=== PATIENT | female | born 1930 | race Caucasian/White ===

== ENCOUNTER 2017-01-18 13:23 | Inpatient (IN) | payer MEDICARE, OTHER ==
[~2017-01-18] VITALS: Ht 167.6 cm; Wt 64.9 kg
[2017-01-18] MEDS ORDERED: PRAM1TAB7 PO (14:30)
[2017-01-18] MEDS ORDERED: AMOX-430 PO (14:30)
[2017-01-18] MEDS ORDERED: FERR-58 PO (14:30)
[2017-01-18] MEDS ORDERED: ATOR10TA PO (14:30)
[2017-01-18] MEDS ORDERED: ASPI-991 PO (14:30)
[2017-01-18] MEDS ORDERED: METO25TA20 PO (14:30)
[2017-01-18 14:34] LABS: BASOPHILS % (AUTO) 0.3 % (0.0-2.0); EOSINOPHILS # (AUTO) 0.2 /CMM (0.0-0.7); EOSINOPHILS % (AUTO) 1.2 % (0.0-6.0); HEMATOCRIT 43 % (33-45); HEMOGLOBIN 14.5 g/dL (11.5-14.8); LYMPHOCYTES # (AUTO) 1.9 /CMM (0.8-4.8); LYMPHOCYTES % (AUTO) 14.8 % (20.0-44.0); MEAN CORPUSCULAR HEMOGLOBIN 32 PG (26.0-33.0); MEAN CORPUSCULAR HGB CONC 34 g/dl (31.0-36.0); MEAN CORPUSCULAR VOLUME 95 fL (82-100); MONOCYTES # (AUTO) 0.8 /CMM (0.1-1.30); MONOCYTES % (AUTO) 6.6 % (2.0-12.0); NEUTROPHILS # (AUTO) 9.8 /CMM (1.8-8.9); NEUTROPHILS % (AUTO) 77.1 % (43.0-81.0); PLATELET COUNT (AUTO) 422 /CMM (150-450); RDW COEFFICIENT OF VARIATION 11.3 (11.5-15.0); RED BLOOD CELL COUNT(AUTO) 4.58 MIL/uL (4.0-5.2); WHITE BLOOD COUNT (AUTO) 12.7 K/uL (4.3-11.0)
[2017-01-18] MEDS ORDERED: IV SET PRIMARY PUMP SET 1 EA INFUS.SET MC ONE ×2 (14:42→19:52)
[2017-01-18] MEDS ORDERED: CEFTRIAXONE 1GM BAG (ER ONLY) 50 ML IV ONE (14:42)
--- NOTE | 2017-01-18 14:45 | NUR ---
CHARGE NURSE CALLED FOR M/S BED
[2017-01-18 14:48] LABS: CARBON DIOXIDE 30 mmol/L (21-32); CHLORIDE 106 mmol/L (98-107); CREATININE 1.1 mg/dL (0.6-1.3); GLUCOSE 125 mg/dL (74-106); SODIUM SERUM 140 mmol/L (136-145); UREA NITROGEN, BLOOD 12 mg/dL (7-18)
[2017-01-18 14:49] LABS: INR 1.07 (0.87-1.13); PROTHROMBIN TIME 11.1 SECS (9.5-12.7)
[2017-01-18 14:51] LABS: TROPONIN I < 0.017 ng/mL (0.00-0.056)
[2017-01-18] MEDS ORDERED: VANCOMYCIN 1 GM in IV D5W 250 ML IV ONE (15:00)
[2017-01-18] MEDS ORDERED: CEFTRIAXONE 1GM BAG (ER ONLY) 1 GM/50 ML PIGGYBACK IV ONE (15:00)
[2017-01-18 15:01] LABS: ALANINE AMINOTRANSFERASE 21 U/L (12-78); ALBUMIN 2.5 g/dL (3.4-5.0); ALKALINE PHOSPHATASE 75 U/L (46-116); ASPARTATE AMINOTRANSFERASE 21 U/L (15-37); BILIRUBIN,DIRECT 0.1 mg/dL (0.0-0.2); BILIRUBIN,TOTAL 0.4 mg/dL (0.2-1.0); TOTAL PROTEIN, SERUM 8.1 g/dL (6.4-8.2)
--- NOTE | 2017-01-18 15:29 | NUR ---
PT ASSIGNED M/S [facility] 206-1
[2017-01-18 15:36] LABS: LACTIC ACID 1.7 mmol/L (0.4-2.0)
--- NOTE | 2017-01-18 15:41 | NUR ---
PAGED DR HANSON
[2017-01-18] MEDS ORDERED: CEFEPIME 1 GM in IV D5W 50 ML IV ONE (16:30)
--- NOTE | 2017-01-18 16:30 | NUR ---
REPORT GIVEN TO SOBEIDA ALFARO FOR JULIEN MS 206-1
[2017-01-18 17:00] VITALS: BP 171/79
--- NOTE | 2017-01-18 17:10 | NUR ---
PT ADMITTED FROM ER IN STABLE CONDITION, NO SOB OR DISTRESS NOTED, NO PAIN OR DISCOMFORT, PT'S SON AT BEDSIDE, PT TRANSFERRED OT BED SAFELY, ORIENTED TO ENVIRONMENT AND CALL LIGHT, WILL MONITOR PT AND START ADMISSION PROCESS.
[2017-01-18] MEDS ORDERED: ONDANSETRON HCL/PF 4 MG/2 ML VIAL IV PRN (18:30)
[2017-01-18] MEDS: METOPROLOL TARTRATE 25 MG TABLET PO SCH (18:30)
[2017-01-18] MEDS ORDERED: LEVOFLOXACIN 500 MG /D5W 100ML 500 MG in PREMIX 1 EA IV SCH (18:30)
[2017-01-18] MEDS: ENOXAPARIN SODIUM 30 MG/0.3 ML DISP.SYRIN SQ SCH (18:34)
[2017-01-18] MEDS ORDERED: FEE PK DOSING 1 MIN EA MC ONE (18:59)
--- NOTE | 2017-01-18 19:31 | NUR ---
PT IN STABLE CONDITION, NO SOB OR DISTRESS NOTED, NO PAIN OR DISCOMFORT, INDORSED TO NEXT SHIFT FOR JULIEN
[2017-01-18] MEDS ORDERED: IV NS 0.9% 250 ML IV ONE (19:52)
[2017-01-18] MEDS ORDERED: SECONDARY IV SET 1 EA INFUS.SET MC ONE (19:52)
[2017-01-18 20:00] VITALS: BP 147/63
[2017-01-18] MEDS ORDERED: VANCOMYCIN 1 GM in IV D5W 250 ML IV SCH (20:00)
[2017-01-18] MEDS ORDERED: LEVOFLOXACIN 500 MG /D5W 100ML 500 MG in PREMIX 1 EA IV ONE (20:00)
--- NOTE | 2017-01-18 20:00 | NUR ---
PATIENT IN BED, ALERT AND ORIENTED X4, CALM, NO RESPIRATORY DISTRESS, ABLE TO VERBALIZE NEEDS, DENIES ANY PAIN AT THIS TIME, RIGHT AC #20 PERIPHERAL LINE IS PATENT AND INFUSING WELL, BILATERAL LOWER EXTREMITIES OFFLOADED. KEPT SAFE AND COMFORTABLE, CALL LIGHT WITHIN REACH.
[2017-01-18] MEDS: ATORVASTATIN 10 MG TABLET PO SCH (21:15)
--- NOTE | 2017-01-18 22:17 | NUR ---
INITIAL WOUND CARE PERFORMED TO RIGHT HEEL, LEFT HEEL REDNESS PROTECTED WITH DRESSING, BOTH LOWER EXTREMITIES OFFLOADED.
[2017-01-19 06:32] LABS: CALCIUM, SERUM 8.5 mg/dL (8.5-10.1); CREATININE 0.9 mg/dL (0.6-1.3); POTASSIUM 3.9 mmol/L (3.5-5.1)
[2017-01-19 06:41] LABS: BASOPHILS % (AUTO) 0.2 % (0.0-2.0); EOSINOPHILS # (AUTO) 0.1 /CMM (0.0-0.7); EOSINOPHILS % (AUTO) 1.1 % (0.0-6.0); HEMATOCRIT 38 % (33-45); HEMOGLOBIN 12.8 g/dL (11.5-14.8); LYMPHOCYTES # (AUTO) 1.9 /CMM (0.8-4.8); MEAN CORPUSCULAR HEMOGLOBIN 32 PG (26.0-33.0); MEAN CORPUSCULAR HGB CONC 33 g/dl (31.0-36.0); MEAN CORPUSCULAR VOLUME 95 fL (82-100); MONOCYTES # (AUTO) 0.8 /CMM (0.1-1.30); MONOCYTES % (AUTO) 7.1 % (2.0-12.0); NEUTROPHILS # (AUTO) 8.5 /CMM (1.8-8.9); NEUTROPHILS % (AUTO) 74.6 % (43.0-81.0); PLATELET COUNT (AUTO) 369 /CMM (150-450); RDW COEFFICIENT OF VARIATION 12.3 (11.5-15.0); RED BLOOD CELL COUNT(AUTO) 4.04 MIL/uL (4.0-5.2); WHITE BLOOD COUNT (AUTO) 11.4 K/uL (4.3-11.0)
--- NOTE | 2017-01-19 06:43 | NUR ---
PATIENT IN BED, ALERT AND AWAKE, NO SOB, NO DISTRESS, DENIES ANY PAIN AT THIS TIME, NO ADVERSE CHANGE OF CONDITION DURING SHIFT, INITIAL WOUND CARE RENDERED, BILATERAL LOWER EXTREMITIES OFFLOADED, NEEDS ATTENDED, CALL LIGHT WITHIN REACH.
[2017-01-19 07:06] LABS: C-REACTIVE PROTEIN 12.7 mg/dL (0.0-0.9)
[2017-01-19 08:00] VITALS: BP 153/78
--- NOTE | 2017-01-19 08:00 | NUR ---
RECEIVED PT IN STABLE CONDITION. PT CURRENTLY RESTING IN BED IN SEMI-SAGASTUME'S. PT IS A/O X4. NO S/S OF DISTRESS NOTED. WILL CONTINUE TO MONITOR THROUGHOUT SHIFT.
[2017-01-19] MEDS: PANTOPRAZOLE 40 MG TABLET.DR PO SCH (08:21)
[2017-01-19] MEDS: ASPIRIN EC 81 MG TABLET.DR PO SCH (08:21)
[2017-01-19] MEDS: FERROUS SULFATE (325 MG) 325 MG/TAB TABLET PO SCH (08:21)
[2017-01-19] MEDS: METOPROLOL TARTRATE 25 MG TABLET PO SCH ×4 (08:22→17:30)
[2017-01-19] MEDS: PRAMIPEXOLE DI-HCL 0.25 MG TABLET PO SCH ×3 (08:22→17:30)
[2017-01-19] MEDS ORDERED: PRAMIPEXOLE DI HCL 1 MG PO SCH (09:00)
[2017-01-19] MEDS ORDERED: SECONDARY IV SET 1 EA INFUS.SET MC ONE (14:48)
[2017-01-19] MEDS: VANCOMYCIN 1 GM in IV D5W 250 ML IV SCH (14:58)
[2017-01-19] MEDS ORDERED: VANCOMYCIN 1 GM in IV D5W 250 ML IV SCH (15:00)
[2017-01-19 16:55] VITALS: BP 141/75
[2017-01-19] MEDS: LACTOBACILLUS RHAMNOSUS GG 1 EACH CAP.SPRINK PO SCH (17:30)
--- NOTE | 2017-01-19 18:55 | NUR ---
MS RN CLOSING NOTES PT IS CURRENTLY A/OX4. PT IS IN STABLE CONDITION. PILLOWS PLACED UNDER LEGS TO OFFLOAD PATIENT'S FEET. NO S/S OF SOB OR DISTRESS NOTED. WILL ENDORSE CARE TO PM SHIFT.
--- NOTE | 2017-01-19 19:30 | NUR ---
PATIENT IN BED, ALERT AND AWAKE, NO SOB, NO DISTRESS, DENIES ANY PAIN AT THIS TIME. BILATERAL LOWER EXTREMITIES OFFLOADED, DRSG CLEAN, DRY AND INTACT. CALL LIGHT WITHIN REACH. WILL CONTINUE TO MONITOR.
[2017-01-19 20:00] VITALS: BP 148/72
[2017-01-19] MEDS: LEVOFLOXACIN 250 MG /D5W 50 ML 250 MG in PREMIX 1 EA IV SCH (21:30)
[2017-01-19] MEDS: ATORVASTATIN 10 MG TABLET PO SCH (21:31)
[2017-01-19] MEDS: ENOXAPARIN SODIUM 30 MG/0.3 ML DISP.SYRIN SQ SCH (21:33)
[2017-01-19 22:00] VITALS: BP 148/72
[2017-01-19] MEDS: ACETAMINOPHEN 325 MG TABLET PO PRN (22:15)
[2017-01-20 06:30] LABS: BASOPHILS % (AUTO) 0.3 % (0.0-2.0); EOSINOPHILS # (AUTO) 0.2 /CMM (0.0-0.7); EOSINOPHILS % (AUTO) 1.8 % (0.0-6.0); HEMATOCRIT 39 % (33-45); HEMOGLOBIN 13.2 g/dL (11.5-14.8); LYMPHOCYTES % (AUTO) 19.1 % (20.0-44.0); MEAN CORPUSCULAR HEMOGLOBIN 32 PG (26.0-33.0); MEAN CORPUSCULAR HGB CONC 34 g/dl (31.0-36.0); MEAN CORPUSCULAR VOLUME 95 fL (82-100); MONOCYTES # (AUTO) 0.7 /CMM (0.1-1.30); MONOCYTES % (AUTO) 6.4 % (2.0-12.0); NEUTROPHILS # (AUTO) 7.7 /CMM (1.8-8.9); NEUTROPHILS % (AUTO) 72.4 % (43.0-81.0); PLATELET COUNT (AUTO) 380 /CMM (150-450); RDW COEFFICIENT OF VARIATION 12.3 (11.5-15.0); RED BLOOD CELL COUNT(AUTO) 4.16 MIL/uL (4.0-5.2); WHITE BLOOD COUNT (AUTO) 10.7 K/uL (4.3-11.0)
[2017-01-20 06:35] LABS: CALCIUM, SERUM 8.2 mg/dL (8.5-10.1); CREATININE 1.1 mg/dL (0.6-1.3); POTASSIUM 4.1 mmol/L (3.5-5.1)
[2017-01-20] MEDS: PANTOPRAZOLE 40 MG TABLET.DR PO SCH (06:43)
--- NOTE | 2017-01-20 06:47 | NUR ---
TEXTED DR. MOTT FOR MRI APPROVAL.
[2017-01-20 08:00] VITALS: BP 150/89
--- NOTE | 2017-01-20 08:00 | NUR ---
MS RN NOTES PATIENT IN BED RESTING NO SOB OR ACUTE DISTRESS NOTED. BED IN LOW LOCKED POSITION. CALL LIGHT WITHIN REACH. IV INTACT PATENT. WILL CONTINUE TO MONITOR.
--- NOTE | 2017-01-20 08:15 | NUR ---
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 PT INCONTINENT AND NOTED TO HAVE SOME EXCORIATION WITH SLIGHT PEELING OF SKIN TO BUTTOCKS, PRESENT ON ADMISSION. PT ON COMFORT GEL MATTRESS. PT ABLE TO ASSIST WITH TURNING AND REPOSITIONING IN BED. CONTINUE ALL SKIN PROTECTION MEASURES. WOUND CARE AND SKIN PROTECTION DISCUSSED WITH NURSING STAFF. MD IN AGREEMENT WITH PLAN OF CARE. Addendum: 01/20/17 at 0817 by TEENA MOONEY WNDNU Amended: Links added.
[2017-01-20] MEDS: ZINC SULFATE 220 MG CAPSULE PO SCH (09:09)
[2017-01-20] MEDS: FERROUS SULFATE (325 MG) 325 MG/TAB TABLET PO SCH (09:09)
[2017-01-20] MEDS: LACTOBACILLUS RHAMNOSUS GG 1 EACH CAP.SPRINK PO SCH ×2 (09:09→17:23)
[2017-01-20] MEDS: ASPIRIN EC 81 MG TABLET.DR PO SCH (09:09)
[2017-01-20] MEDS: Z GUARD REMEDY 2 OZ OINT TP SCH (09:09)
[2017-01-20] MEDS: ASCORBIC ACID 500 MG TABLET PO SCH (09:09)
[2017-01-20] MEDS: DAKINS QUARTER STRENGTH (0.125%) 480 ML BOTTLE TOP SCH (09:09)
[2017-01-20] MEDS: PRAMIPEXOLE DI-HCL 0.25 MG TABLET PO SCH ×3 (09:09→17:23)
[2017-01-20] MEDS: FLUOCINONIDE 0.05% CREAM 60 GM TUBE TP SCH ×2 (09:09→17:24)
[2017-01-20] MEDS: METOPROLOL TARTRATE 25 MG TABLET PO SCH ×2 (09:10→17:24)
[2017-01-20] MEDS: VANCOMYCIN 1 GM in IV D5W 250 ML IV SCH (09:17)
[2017-01-20] MEDS: GENTAMICIN 0.1% OINT 15 GM TUBE TP SCH (10:45)
[2017-01-20 16:00] VITALS: BP 164/86
--- NOTE | 2017-01-20 16:00 | NUR ---
MS RN NOTES PATIENTS EKG READING NOTED WITH A-FIB DR. HANSON MADE AWARE WILL CONTINUE TO MONITOR.
--- NOTE | 2017-01-20 18:49 | NUR ---
MS RN NOTES PATIENT IN BED RESTING NO SOB OR ACUTE DISTRESS NOTED. ALL DUE MEDICATIONS GIVEN. ALL NEEDS MET WAITING FOR DR. KIRAN FOR WOUND DEBRIDEMENT. WILL ENDORSE CARE TO PM SHIFT.
[2017-01-20 20:00] VITALS: BP 127/46
[2017-01-20] MEDS: LEVOFLOXACIN 250 MG /D5W 50 ML 250 MG in PREMIX 1 EA IV SCH (20:55)
[2017-01-20] MEDS: ATORVASTATIN 10 MG TABLET PO SCH (20:55)
[2017-01-20] MEDS: ACETAMINOPHEN 325 MG TABLET PO PRN (20:55)
[2017-01-20] MEDS: ENOXAPARIN SODIUM 30 MG/0.3 ML DISP.SYRIN SQ SCH (20:56)
[2017-01-20 22:00] VITALS: BP 127/46
[2017-01-21] MEDS ORDERED: IV NS 0.9% 250 ML IV ONE (03:49)
[2017-01-21] MEDS: VANCOMYCIN 0.75 GM in IV D5W 250 ML IV SCH ×2 (03:55→20:53)
--- NOTE | 2017-01-21 05:00 | NUR ---
MS RN NOTE IV SITE INFILTRATED. REMOVED AND DISPOSED OF PROPERLY. INSERTED NEW IV TO RIGHT WRIST. PATIENT TOLERATED WELL. WILL CONTINUE TO MONITOR.
[2017-01-21] MEDS: PANTOPRAZOLE 40 MG TABLET.DR PO SCH (06:35)
--- NOTE | 2017-01-21 06:54 | NUR ---
MS RN NOTE PATIENT STABLE. DRESSING TO RIGHT FOOT UNDONE. WOUND CARE PROVIDED. DRESSING CLEAN, DRY AND INTACT. ALL NEEDS MET AND ATTENDED TO. WILL ENDORSE TO DAY SHIFT FOR JULIEN.
[2017-01-21 07:02] LABS: CALCIUM, SERUM 8.8 mg/dL (8.5-10.1); POTASSIUM 3.9 mmol/L (3.5-5.1)
[2017-01-21 08:00] VITALS: BP 155/79
--- NOTE | 2017-01-21 08:00 | NUR ---
MS RN NOTES PATIENT IN BED RESTING NO SOB OR ACUTE DISTRESS NOTED. BED IN LOW LOCKED POSITION. CALL LIGHT WITHIN REACH. IV INTACT PATENT ON RIGHT WRIST. WILL CONTINUE TO MONITOR.
[2017-01-21] MEDS: ZINC SULFATE 220 MG CAPSULE PO SCH (08:53)
[2017-01-21] MEDS: FERROUS SULFATE (325 MG) 325 MG/TAB TABLET PO SCH (08:54)
[2017-01-21] MEDS: METOPROLOL TARTRATE 25 MG TABLET PO SCH ×2 (08:54→16:30)
[2017-01-21] MEDS: ASCORBIC ACID 500 MG TABLET PO SCH (08:54)
[2017-01-21] MEDS: LACTOBACILLUS RHAMNOSUS GG 1 EACH CAP.SPRINK PO SCH ×2 (08:54→16:29)
[2017-01-21] MEDS: ASPIRIN EC 81 MG TABLET.DR PO SCH (08:54)
[2017-01-21] MEDS: PRAMIPEXOLE DI-HCL 0.25 MG TABLET PO SCH ×3 (08:55→16:31)
[2017-01-21] MEDS: DAKINS QUARTER STRENGTH (0.125%) 480 ML BOTTLE TOP SCH (08:55)
[2017-01-21] MEDS: Z GUARD REMEDY 2 OZ OINT TP SCH (08:56)
[2017-01-21] MEDS: GENTAMICIN 0.1% OINT 15 GM TUBE TP SCH (08:56)
[2017-01-21] MEDS: FLUOCINONIDE 0.05% CREAM 60 GM TUBE TP SCH ×2 (08:56→16:32)
[2017-01-21] MEDS: ACETAMINOPHEN 325 MG TABLET PO PRN ×2 (10:29→20:53)
--- NOTE | 2017-01-21 11:00 | NUR ---
MS RN NOTES PATIENT SEEN BY DR. HUNG AND DEBRIDEMENT PERFORMED BY DR. HUNG, PATIENT TOLERATED WELL. WILL CONTINUE TO MONITOR. ORDERS TO CONTINUE WITH PREVIOUS WOUND CARE.
--- NOTE | 2017-01-21 15:43 | NUR ---
MS RN NOTES PATIENT SEEN AND EVALUATED BY DR. REAGAN, CONTINUE WITH SAME TREATMENT ORDERS.
[2017-01-21 16:00] VITALS: BP 156/83
--- NOTE | 2017-01-21 18:49 | NUR ---
MS RN NOTES PATIENT IN BED RESTING NO SOB OR ACUTE DISTRESS NOTED. ALL DUE MEDICATIONS ADMINISTERED. ALL NEEDS MET. IV ON RIGHT HAND INTACT PATENT. WILL ENDORSE JULIEN TO PM SHIFT
--- NOTE | 2017-01-21 19:30 | NUR ---
MS RN NOTE RECEIVED PATIENT AWAKE AND ALERT IN BED. NO PAIN OR DISTRESS NOTED. SIDE RAILS UP, CALL LIGHT WITHIN REACH. WILL CONTINUE TO MONITOR.
--- NOTE | 2017-01-21 19:39 | NUR ---
MS RN NOTE IV SITE TO RIGHT WRIST INFILTRATED AGAIN. ATTEMPTED TO RE-INSERT SEVERAL TIMES WITH NO SUCCESS. MD NOTIFIED. NEW ORDER FOR MIDLINE INSERTION RECEIVED AND CARRIED OUT. MANUELA AT BEDSIDE TO INSERT MIDLINE. PATIENT TOLERATING WELL. NO BLEEDING OR BRUISING AT THIS TIME. WILL CONTINUE TO MONITOR.
[2017-01-21 20:00] VITALS: BP 130/60
[2017-01-21 20:40] VITALS: BP 130/60
[2017-01-21] MEDS: LEVOFLOXACIN (250MG) 250 MG TABLET PO SCH (20:53)
[2017-01-21] MEDS: ATORVASTATIN 10 MG TABLET PO SCH (20:53)
[2017-01-21] MEDS: ENOXAPARIN SODIUM 30 MG/0.3 ML DISP.SYRIN SQ SCH (20:54)
--- NOTE | 2017-01-22 06:12 | NUR ---
ms rn note patient stable. slept well. all needs met and attended to. Midline to NILSA intact with no bleeding or bruising noted. Will endorse to day shift for linda.
[2017-01-22] MEDS: PANTOPRAZOLE 40 MG TABLET.DR PO SCH (06:32)
[2017-01-22 07:11] LABS: CALCIUM, SERUM 8.3 mg/dL (8.5-10.1)
--- NOTE | 2017-01-22 07:16 | NUR ---
RN NOTES RECEIVED PT IN BED. AWAKE, ALERT, ORIENTED X 3. IN NO APPARENT DISTRESS. RESPIRATIONS EVEN AND UNLABORED. DENIES PAIN AND DISCOMFORT. WILL CONTINUE TO MONITOR. CALL LIGHT WITHIN REACH
[2017-01-22 08:00] VITALS: BP 118/69
[2017-01-22] MEDS: ASPIRIN EC 81 MG TABLET.DR PO SCH (09:06)
[2017-01-22] MEDS: METOPROLOL TARTRATE 25 MG TABLET PO SCH ×2 (09:09→17:12)
[2017-01-22] MEDS: LACTOBACILLUS RHAMNOSUS GG 1 EACH CAP.SPRINK PO SCH ×2 (09:10→17:10)
[2017-01-22] MEDS: FERROUS SULFATE (325 MG) 325 MG/TAB TABLET PO SCH (09:10)
[2017-01-22] MEDS: ASCORBIC ACID 500 MG TABLET PO SCH (09:11)
[2017-01-22] MEDS: PRAMIPEXOLE DI-HCL 0.25 MG TABLET PO SCH ×3 (09:12→17:10)
[2017-01-22] MEDS: ZINC SULFATE 220 MG CAPSULE PO SCH (09:12)
[2017-01-22] MEDS: DAKINS QUARTER STRENGTH (0.125%) 480 ML BOTTLE TOP SCH (09:59)
[2017-01-22] MEDS: GENTAMICIN 0.1% OINT 15 GM TUBE TP SCH (09:59)
[2017-01-22] MEDS: FLUOCINONIDE 0.05% CREAM 60 GM TUBE TP SCH ×2 (09:59→17:12)
[2017-01-22] MEDS: Z GUARD REMEDY 2 OZ OINT TP SCH (10:00)
--- NOTE | 2017-01-22 10:00 | NUR ---
rn notes pt tolerated all due meds and treatments. [facility] also, seen by dr jules for ffup. no new orders at this time. will continue to monitor
--- NOTE | 2017-01-22 12:30 | NUR ---
RN NOTES PT SEEN AND EXAMINED BY DR HANSON- NO NEW ORDERS AT THIS TIME. DR HANSON ALSO ABLE TO SPEAK WITH PT'S SON REQUESTED. WILL CONTINUE TO MONITOR
[2017-01-22] MEDS: VANCOMYCIN 0.75 GM in IV D5W 250 ML IV SCH (14:29)
[2017-01-22 16:00] VITALS: BP 149/60
--- NOTE | 2017-01-22 18:00 | NUR ---
RN NOTES PT IN BED. AWAKE,ALERT, ORIENTED X 3. IN NO APPARENT DISTRESS. TOLERATED ALL DUES MEDS AND TREATMENTSS. WILL ENDORSE TO ONCOMING SHIFT
[2017-01-22] MEDS: ACETAMINOPHEN 325 MG TABLET PO PRN (18:51)
--- NOTE | 2017-01-22 19:15 | NUR ---
MS RN NOTES RECEIVED PT IN BED, AWAKE, A/0 X 3. VERBALLY RESPONSIVE, ABLE TO MAKE NEEDS KNOWN. NO ACUTE DISTRESS, NO SOB NOTED. RESPIRATION IS EVEN AND UNLABORED. ON REGULAR DIET TOLERATED WELL. NILSA MIDLINE INTACT AND PATENT, NO S/S OF INFECTION NOTED. NO C/O PAIN OR DISCOMFORT AT THIS TIME. ALL NEEDS ATTENDED AND MET . KEPT CLEAN AND COMFORTABLE. SAFETY PRECAUTIONS OBSERVED. CALL LIGHT WITHIN REACH. WILL CONT TO MONITOR.
[2017-01-22 20:00] VITALS: BP 130/61
[2017-01-22] MEDS: LEVOFLOXACIN (250MG) 250 MG TABLET PO SCH (21:55)
[2017-01-22] MEDS: ATORVASTATIN 10 MG TABLET PO SCH (21:56)
[2017-01-22] MEDS: ENOXAPARIN SODIUM 30 MG/0.3 ML DISP.SYRIN SQ SCH (21:59)
[2017-01-22 22:00] VITALS: BP 130/61
--- NOTE | 2017-01-23 00:30 | NUR ---
MS RN NOTES PT RESTING COMFORTABLY AT THIS TIME, NO DISTRESS, NO SOB NOTED. NO C/O PAIN AT THIS TIME. CALL LIGHT WITHIN REACH. WILL CONTINUE TO MONITOR.
[2017-01-23 06:30] LABS: BASOPHILS # (AUTO) 0.1 /CMM (0.0-0.2); BASOPHILS % (AUTO) 0.6 % (0.0-2.0); EOSINOPHILS # (AUTO) 0.2 /CMM (0.0-0.7); HEMATOCRIT 41 % (33-45); HEMOGLOBIN 14.1 g/dL (11.5-14.8); LYMPHOCYTES # (AUTO) 2.4 /CMM (0.8-4.8); LYMPHOCYTES % (AUTO) 22.1 % (20.0-44.0); MEAN CORPUSCULAR HEMOGLOBIN 32 PG (26.0-33.0); MEAN CORPUSCULAR HGB CONC 34 g/dl (31.0-36.0); MEAN CORPUSCULAR VOLUME 93 fL (82-100); MONOCYTES # (AUTO) 0.6 /CMM (0.1-1.30); MONOCYTES % (AUTO) 5.3 % (2.0-12.0); NEUTROPHILS # (AUTO) 7.6 /CMM (1.8-8.9); PLATELET COUNT (AUTO) 371 /CMM (150-450); RDW COEFFICIENT OF VARIATION 12.3 (11.5-15.0); RED BLOOD CELL COUNT(AUTO) 4.43 MIL/uL (4.0-5.2); WHITE BLOOD COUNT (AUTO) 10.9 K/uL (4.3-11.0)
[2017-01-23 06:34] LABS: CALCIUM, SERUM 8.7 mg/dL (8.5-10.1); CREATININE 1.1 mg/dL (0.6-1.3); POTASSIUM 4.2 mmol/L (3.5-5.1)
--- NOTE | 2017-01-23 07:05 | NUR ---
MS RN NOTES PT IN BED,RESTING AT THIS TIME. AWAKE, A/0 X 3. VERBALLY RESPONSIVE, ABLE TO MAKE NEEDS KNOWN. NO ACUTE DISTRESS, NO SOB NOTED. RESPIRATION IS EVEN AND UNLABORED. ON REGULAR DIET TOLERATED WELL. NILSA MIDLINE INTACT AND PATENT, NO S/S OF INFECTION NOTED. NO C/O PAIN OR DISCOMFORT AT THIS TIME. ALL NEEDS ATTENDED AND MET . KEPT CLEAN AND COMFORTABLE. SAFETY PRECAUTIONS OBSERVED. CALL LIGHT WITHIN REACH. WILL ENDORSE TO NEXT SHIFT FOR JULIEN. .
[2017-01-23 08:00] VITALS: BP 142/68
[2017-01-23] MEDS ORDERED: SECONDARY IV SET 1 EA INFUS.SET MC ONE (08:13)
[2017-01-23] MEDS ORDERED: IV NS 0.9% 250 ML IV ONE (08:13)
[2017-01-23] MEDS ORDERED: IV SET PRIMARY PUMP SET 1 EA INFUS.SET MC ONE (08:13)
[2017-01-23] MEDS: FLUOCINONIDE 0.05% CREAM 60 GM TUBE TP SCH ×2 (08:18→18:14)
[2017-01-23] MEDS: GENTAMICIN 0.1% OINT 15 GM TUBE TP SCH (08:18)
[2017-01-23] MEDS: VANCOMYCIN 0.75 GM in IV D5W 250 ML IV SCH (08:18)
[2017-01-23] MEDS: ZINC SULFATE 220 MG CAPSULE PO SCH (08:19)
[2017-01-23] MEDS: ASCORBIC ACID 500 MG TABLET PO SCH (08:19)
[2017-01-23] MEDS: LACTOBACILLUS RHAMNOSUS GG 1 EACH CAP.SPRINK PO SCH ×2 (08:19→18:13)
[2017-01-23] MEDS: Z GUARD REMEDY 2 OZ OINT TP SCH (08:19)
[2017-01-23] MEDS: PRAMIPEXOLE DI-HCL 0.25 MG TABLET PO SCH ×3 (08:19→18:13)
[2017-01-23] MEDS: DAKINS QUARTER STRENGTH (0.125%) 480 ML BOTTLE TOP SCH (08:19)
[2017-01-23] MEDS: FERROUS SULFATE (325 MG) 325 MG/TAB TABLET PO SCH (08:20)
[2017-01-23] MEDS: PANTOPRAZOLE 40 MG TABLET.DR PO SCH (08:20)
[2017-01-23] MEDS: ASPIRIN EC 81 MG TABLET.DR PO SCH (08:20)
[2017-01-23] MEDS: METOPROLOL TARTRATE 25 MG TABLET PO SCH ×2 (08:20→18:13)
[2017-01-23 16:00] VITALS: BP 121/64
--- NOTE | 2017-01-23 19:23 | NUR ---
MS RN CLOSING NOTES NO SIGNIFICANT CHANGES IN PATENT CONDITION THROUGHOUT THE SHIFT. NO SOB OR DISTRESS NOTED AT THIS TIME. PATIENT IS SLEEPING, NO FACIAL GRIMACE NOTED, DOES NOT APPEAR TO BE IN PAIN. BED IN A LOW POSITION, CALL LIGHT IS WITHIN PATIENT REACH. WILL ENDORSE FOR JULIEN.
--- NOTE | 2017-01-23 19:30 | NUR ---
MS RN NOTES RECEIVED PT IN BED, AWAKE, WATCHING TV AT THIS TIME. A/O X 4. VERBALLY RESPONSIVE. NO DISTRESS, NO SOB NOTED. IV SITE ON LFA G # 22 INTACT AND PATENT, NO S/S OF INFECTION NOTED. DENIES PAIN OR DISCOMFORT AT THIS TIME. ALL NEEDS ATTENDED AND MET. KEPT COMFORTABLE. SAFETY PRECAUTIONS OBSERVED. CALL LIGHT WITHIN REACH. WILL CONT TO MONITOR.
[2017-01-23 20:00] VITALS: BP 118/63
[2017-01-23] MEDS: LEVOFLOXACIN (250MG) 250 MG TABLET PO SCH (21:00)
[2017-01-23] MEDS: ATORVASTATIN 10 MG TABLET PO SCH (21:02)
[2017-01-23] MEDS: ENOXAPARIN SODIUM 30 MG/0.3 ML DISP.SYRIN SQ SCH (21:09)
[2017-01-23 22:00] VITALS: BP 118/63
[2017-01-24] MEDS: VANCOMYCIN 0.75 GM in IV D5W 250 ML IV SCH ×2 (03:19→20:46)
[2017-01-24 07:09] LABS: CALCIUM, SERUM 8.4 mg/dL (8.5-10.1); CREATININE 1.1 mg/dL (0.6-1.3); POTASSIUM 4.2 mmol/L (3.5-5.1)
--- NOTE | 2017-01-24 07:30 | NUR ---
MS RN NOTES PT IN BED, A/O X 4. VERBALLY RESPONSIVE. NO DISTRESS, NO SOB NOTED. IV SITE ON NILSA MIDLINE INTACT AND PATENT, NO S/S OF INFECTION NOTED. DENIES PAIN OR DISCOMFORT AT THIS TIME. ALL NEEDS ATTENDED AND MET. KEPT COMFORTABLE. SAFETY PRECAUTIONS OBSERVED. CALL LIGHT WITHIN REACH. WILL ENDORSE TO NEXT SHIFT FOR JULIEN.
[2017-01-24 08:00] VITALS: BP 133/66
--- NOTE | 2017-01-24 08:17 | NUR ---
RN AM NOTES RECEIVED PATIENT IN STABLE CONDITION, READY FOR BREAKFAST. NO COMPLAINTS OF PAIN OR DISTRESS. WILL CONTINUE TO MONITOR.
[2017-01-24] MEDS: ASPIRIN EC 81 MG TABLET.DR PO SCH (09:32)
[2017-01-24] MEDS: PRAMIPEXOLE DI-HCL 0.25 MG TABLET PO SCH ×3 (09:33→18:44)
[2017-01-24] MEDS: LACTOBACILLUS RHAMNOSUS GG 1 EACH CAP.SPRINK PO SCH ×2 (09:34→18:44)
[2017-01-24] MEDS: FERROUS SULFATE (325 MG) 325 MG/TAB TABLET PO SCH (09:34)
[2017-01-24] MEDS: ZINC SULFATE 220 MG CAPSULE PO SCH (09:34)
[2017-01-24] MEDS: ASCORBIC ACID 500 MG TABLET PO SCH (09:34)
[2017-01-24] MEDS: PANTOPRAZOLE 40 MG TABLET.DR PO SCH (09:35)
[2017-01-24] MEDS: METOPROLOL TARTRATE 25 MG TABLET PO SCH ×2 (09:35→18:45)
[2017-01-24] MEDS: DAKINS QUARTER STRENGTH (0.125%) 480 ML BOTTLE TOP SCH (09:40)
[2017-01-24] MEDS: FLUOCINONIDE 0.05% CREAM 60 GM TUBE TP SCH ×2 (09:40→17:00)
[2017-01-24] MEDS: Z GUARD REMEDY 2 OZ OINT TP SCH (09:41)
[2017-01-24] MEDS: ACETAMINOPHEN 325 MG TABLET PO PRN (12:51)
[2017-01-24] MEDS: GENTAMICIN 0.1% OINT 15 GM TUBE TP SCH (12:52)
--- NOTE | 2017-01-24 14:39 | NUR ---
DEBRIDEMENT OF FOOT COMPLETED AT BEDSIDE, DISCHARGE PAPERWORK AND PICTURES DONE. WAITING FOR CONFIRMATION OF SNF PLACEMENT FROM CASE MANAGEMENT. WILL CONTINUE TO MONITOR.
[2017-01-24 16:00] VITALS: BP 132/62
--- NOTE | 2017-01-24 18:50 | NUR ---
RN PM NOTES PATIENT IN BED AWAITING EVENING LINEN CHANGE. IN STABLE CONDITION, WOUND WRAPPED, NO DRAINAGE, NO COMPLAINTS OF PAIN OR DISCOMFORT. WILL ENDORSE TO NEXT SHIFT.
--- NOTE | 2017-01-24 19:35 | NUR ---
MS RN NOTES RECEIVED PT IN BED, AWAKE , A/O X 3 . VERBALLY RESPONSIVE. NO DISTRESS, NO SOB NOTED. RESPIRATION IS EVEN AND UNLABORED. NILSA MIDLINE INTACT AND PATENT, NO S./S OF INFECTION NOTED. ON REGULAR DIET SANDRA WELL. RIGHT HEEL WOUND WITH INTACT DRESSING, NO BLEEDING NOTED. DENIES ANY PAIN OR DISCOMFORT AT THIS TIME. ALL NEEDS ATTENDED. CALL LIGHT WITHIN REACH. WILL CONTINUE TON MONITOR.
[2017-01-24 20:00] VITALS: BP 121/63
--- NOTE | 2017-01-24 20:00 | NUR ---
INFORMED PT THAT SHE WILL BE DISCHARGED AT 9PM TO [facility], TRANSPORTATION WAS SET UP BY [facility]. PATIENT STATED THAT SHE WASN'T AWARE THAT SHE WILL BE DISCHARGE AND THAT SHE DOESN'T WANT TO BE DISCHARGED TONIGHT AND SHE WANTS TO BE DISCHARGED TOMORROW. IMMEDIATELY CALLED HER SON , SPOKE WITH BETO SETH ON THE PHONE, PER SON HE REFUSED FOR HIS MOM TO BE DISCHARGED TONIGHT. RISK AND BENEFITS EXPLAINED, PT REFUSED TO BE DISCHARGED TONIGHT WELL THE SON.
--- NOTE | 2017-01-24 20:02 | NUR ---
Per Emma casey saw operator educational guidance counselor of [employer] [phone], patient has been approved for SNF @ [facility] [phone] for rahul, ambulance continuous pickling line pickler helper 9pm was arranged by HCP. Addendum: 01/24/17 at 2001 by JIMENA MOONEY RN Amended: Links added.
--- NOTE | 2017-01-24 20:30 | NUR ---
PLACED A CALL TO DR. HANSON'S OFFICE, PER VOICE RECORDING TO CALL [facility], PLACED A CALL TO [facility] AND STILL AWAITING FOR MARLEY MORTON NP TO CALL BACK.
--- NOTE | 2017-01-24 20:40 | NUR ---
RECEIVED A CALL BACK FROM HAZEL MORTON AND MADE AWARE OF THE SITUATION AND PT AND HER SON IS REFUSED THE DISCHARGE. PER SELENE TO HOLD DC AND FF UP IN THE MORNING WITH THE PRIMARY MD. JIMENA, LAWN MOWER INFORMED AND PLACED A CALL TO GOLD AGING BOX HAND FROM HCP, ЮЛИЯ DELA CRUZ TO UPDATE HER TOMORROW REGARDING THE DISCHARGE.
--- NOTE | 2017-01-24 20:40 | NUR ---
RECEIVED A CALL BACK FROM HAZEL MORTON, INFORMED HIM THAT PT AND HER SON IS REFUSED THE DISCHARGE. PER SELENE TO CANCEL THE DISCHARGE TONIGHT AND FF UP IN THE MORNING WITH THE PRIMARY MD. JIMENA, MANAGER EQUIPMENT INFORMED AND PLACED A CALL TO GOLD SANITOR FROM [facility], PER GOLD JUST TO UPDATE HER TOMORROW REGARDING THE DISCHARGE. Addendum: 01/25/17 at 0614 by YAZ CARDENAS RN INCORRECT PT DOCUMENTATION .
--- NOTE | 2017-01-24 20:44 | NUR ---
PATIENT AND PT'S SON INFORMED REGARDING HOLD OF DISCHARGE.
[2017-01-24] MEDS: LEVOFLOXACIN (250MG) 250 MG TABLET PO SCH (20:46)
[2017-01-24 22:00] VITALS: BP 121/63
[2017-01-24] MEDS: ATORVASTATIN 10 MG TABLET PO SCH (22:21)
[2017-01-24] MEDS: ENOXAPARIN SODIUM 30 MG/0.3 ML DISP.SYRIN SQ SCH (22:25)
--- NOTE | 2017-01-25 06:44 | NUR ---
MS RN NOTES PT IN BED, RESTING COMFORTABLY AT THIS TIME. AROUSES EASILY, A/O X 3 . VERBALLY RESPONSIVE. NO DISTRESS, NO SOB NOTED. RESPIRATION IS EVEN AND UNLABORED. NILSA MIDLINE INTACT AND PATENT, NO S./S OF INFECTION NOTED. ON REGULAR DIET SANDRA WELL. RIGHT HEEL WOUND WITH INTACT DRESSING, NO BLEEDING NOTED. DENIES ANY PAIN OR DISCOMFORT AT THIS TIME. ALL NEEDS ATTENDED. CALL LIGHT WITHIN REACH. WILL ENDORSE TO NEXT SHIFT FOR JULIEN.
[2017-01-25 07:09] LABS: CALCIUM, SERUM 8.7 mg/dL (8.5-10.1); CREATININE 1.1 mg/dL (0.6-1.3); POTASSIUM 4.3 mmol/L (3.5-5.1)
--- NOTE | 2017-01-25 07:30 | NUR ---
MS RN NOTES RECEIVED PT AWAKE ON BED AOX3. BREATHING EVEN AND NON LABORED, NO S/S OF ANY DISTRESS OR DISCOMFORT NOTED. DENIES ANY PAIN AT THIS TIME. DRESSING ON HER RIGHT HEEL DRY AND INTACT. CALL LIGHT WITHIN REACH, BED IN LOW POSITION FOR SAFETY MEASURES. WILL CONTINUE TO MONITOR.
[2017-01-25 08:00] VITALS: BP 135/65
[2017-01-25] MEDS: FERROUS SULFATE (325 MG) 325 MG/TAB TABLET PO SCH (08:45)
[2017-01-25] MEDS: ASCORBIC ACID 500 MG TABLET PO SCH (08:45)
[2017-01-25] MEDS: PANTOPRAZOLE 40 MG TABLET.DR PO SCH (08:45)
[2017-01-25] MEDS: ZINC SULFATE 220 MG CAPSULE PO SCH (08:45)
[2017-01-25] MEDS: METOPROLOL TARTRATE 25 MG TABLET PO SCH ×2 (08:46→17:23)
[2017-01-25] MEDS: LACTOBACILLUS RHAMNOSUS GG 1 EACH CAP.SPRINK PO SCH ×2 (08:46→17:23)
[2017-01-25] MEDS: ASPIRIN EC 81 MG TABLET.DR PO SCH (08:46)
[2017-01-25] MEDS: PRAMIPEXOLE DI-HCL 0.25 MG TABLET PO SCH ×3 (08:46→17:23)
[2017-01-25] MEDS: DAKINS QUARTER STRENGTH (0.125%) 480 ML BOTTLE TOP SCH (08:48)
[2017-01-25] MEDS: GENTAMICIN 0.1% OINT 15 GM TUBE TP SCH (08:48)
[2017-01-25] MEDS: FLUOCINONIDE 0.05% CREAM 60 GM TUBE TP SCH ×2 (08:50→17:24)
[2017-01-25] MEDS: Z GUARD REMEDY 2 OZ OINT TP SCH (08:50)
--- NOTE | 2017-01-25 09:30 | NUR ---
MS RN NOTES SON BETO APPROACHED ME THAT HE WANTS TO TALK TO THE STRUCTURAL STEEL ERECTOR ON DUTY AND THE CM TODAY. BETO STARTED TO BECOME UPSET AND THREATENING THAT HE'S GOING TO [facility]. WHY NOBODY INFORM HIM THAT HIS MOM WILL BE DISCHARGE LAST NIGHT. NURSING CLERK GENERAL SEUN MADE AWARE AND SHE CAME TO SPEAK WITH THE PT'S SON.
--- NOTE | 2017-01-25 10:00 | NUR ---
MS RN NOTES CM GEN NOTIFIED ABOUT THE SITUATION THAT THE PT'S SON WAS VERY UPSET. AND DEMANDING AN EXPLANATION WHY HE WASN'T INFORM. GEN STATED THAT SHE WILL CALL THE SON.
--- NOTE | 2017-01-25 13:00 | NUR ---
MS RN NOTES S/B DR. CARCAMO WITH NO NEW ORDERS MADE.
[2017-01-25] MEDS: VANCOMYCIN 0.75 GM in IV D5W 250 ML IV SCH (15:33)
[2017-01-25 16:00] VITALS: BP_SYST 113; BP_SYST 124; BP_DIAS 59; BP_DIAS 68
--- NOTE | 2017-01-25 19:00 | NUR ---
MS RN NOTES NEEDS ALL ATTENDED AND ANTICIPATED. ENDORSED TO INCOMING SHIFT FOR CONTINUITY OF CARE.
--- NOTE | 2017-01-25 19:30 | NUR ---
MS RN NOTE: PATIENT RESTING IN BED, NO ACUTE DISTRESS NOTED. BREATHING EVEN AND UNLABORED, NO SOB NOTED. MIDLINE TO NILSA IN PLACE. BED LOCKED AND IN LOWEST POSITION, CALL LIGHT IN REACH. WILL CONTINUE TO MONITOR.
[2017-01-25 20:00] VITALS: BP 127/61
[2017-01-25] MEDS: ATORVASTATIN 10 MG TABLET PO SCH (21:15)
[2017-01-25] MEDS: LEVOFLOXACIN (250MG) 250 MG TABLET PO SCH (21:17)
--- NOTE | 2017-01-26 02:30 | NUR ---
MS RN NOTE: PATIENT SLEEPING IN BED, NO ACUTE DISTRESS NOTED. BREATHING EVEN AND UNLABORED, NO SOB NOTED. BED LOCKED AND IN LOWEST POSITION. CALL LIGHT IN REACH, WILL CONTINUE TO MONITOR.
--- NOTE | 2017-01-26 06:00 | NUR ---
MS RN NOTE: PATIENT RESTING IN BED, NO ACUTE DISTRESS NOTED. BREATHING EVEN AND UNLABORED, NO SOB NOTED. MIDLINE TO NILSA IN PLACE. BED LOCKED AND IN LOWEST POSITION, CALL LIGHT IN REACH. WILL ENDORSE TO DAY NURSE TO CONTINUE WITH PLAN OF CARE.
[2017-01-26] MEDS: PANTOPRAZOLE 40 MG TABLET.DR PO SCH (07:01)
--- NOTE | 2017-01-26 07:30 | NUR ---
MS RN NOTES RECEIVED PT AWAKE ON BED AOX3. WITH HOB ELEVATED, WATCHING TV. BREATHING EVEN AND NON LABORED, NO S/S OF ANY DISTRESS OR DISCOMFORT NOTED. DENIES ANY PAIN AT THIS TIME. CALL LIGHT WITHIN REACH, BED IN LOW POSITION FOR SAFETY MEASURES. WILL CONTINUE TO MONITOR PT'S CONDITION ACCORDINGLY.
[2017-01-26 08:00] VITALS: BP 118/61
[2017-01-26] MEDS: LACTOBACILLUS RHAMNOSUS GG 1 EACH CAP.SPRINK PO SCH ×2 (08:54→16:43)
[2017-01-26] MEDS: ASPIRIN EC 81 MG TABLET.DR PO SCH (08:54)
[2017-01-26] MEDS: ZINC SULFATE 220 MG CAPSULE PO SCH (08:54)
[2017-01-26] MEDS: FERROUS SULFATE (325 MG) 325 MG/TAB TABLET PO SCH (08:54)
[2017-01-26] MEDS: PRAMIPEXOLE DI-HCL 0.25 MG TABLET PO SCH ×3 (08:54→16:43)
[2017-01-26] MEDS: ASCORBIC ACID 500 MG TABLET PO SCH (08:54)
[2017-01-26] MEDS: METOPROLOL TARTRATE 25 MG TABLET PO SCH ×2 (08:55→16:43)
[2017-01-26] MEDS: GENTAMICIN 0.1% OINT 15 GM TUBE TP SCH (09:00)
[2017-01-26] MEDS: DAKINS QUARTER STRENGTH (0.125%) 480 ML BOTTLE TOP SCH (09:00)
[2017-01-26] MEDS: Z GUARD REMEDY 2 OZ OINT TP SCH (09:01)
[2017-01-26 09:02] LABS: CALCIUM, SERUM 8.8 mg/dL (8.5-10.1); POTASSIUM 4.6 mmol/L (3.5-5.1)
[2017-01-26] MEDS: VANCOMYCIN 0.75 GM in IV D5W 250 ML IV SCH (09:02)
--- NOTE | 2017-01-26 11:33 | NUR ---
MS RN NOTES RT FOOT DEBRIDEMENT DONE AT BEDSIDE BY DR. MARLEY. NO S/S OF BLEEDING NOTED. DRESSING DONE. PROCEDURE TOLERATED WELL. DENIES ANY PAIN AT THIS TIME. WILL CONTINUE TO MONITOR
[2017-01-26] MEDS: FLUOCINONIDE 0.05% CREAM 15 GM TUBE TP SCH ×2 (12:32→16:45)
[2017-01-26 16:00] VITALS: BP 121/53
--- NOTE | 2017-01-26 18:17 | NUR ---
MS RN NOTES NEEDS ALL ATTENDED AND ANTICIPATED. ENDORSED TO INCOMING SHIFT FOR CONTINUITY OF CARE.
--- NOTE | 2017-01-26 19:30 | NUR ---
RN NOTES RECEIVED PT. AWAKE ON BED, A/OX3. DRESSING ON THE RIGHT HEEL DRY AND INTACT, CALL LIGHT WITHIN REACH, SIDERAILS UPX2 CONTINUT TO MONITOR
[2017-01-26 20:00] VITALS: BP 136/57
[2017-01-26] MEDS: LEVOFLOXACIN (250MG) 250 MG TABLET PO SCH (21:18)
[2017-01-26] MEDS: ATORVASTATIN 10 MG TABLET PO SCH (21:18)
[2017-01-26] MEDS: ACETAMINOPHEN 325 MG TABLET PO PRN (22:28)
--- NOTE | 2017-01-26 22:31 | NUR ---
RN NOTES PT COMPLAINED OF MILD PAIN ON HER RIGHT HEEL AND ASKED FOR A TYLENOL- TYLENOL 650MG PO GIVEN ORDERED, V/S STABLE
[2017-01-27] MEDS: VANCOMYCIN 0.75 GM in IV D5W 250 ML IV SCH ×2 (02:49→20:38)
--- NOTE | 2017-01-27 06:46 | NUR ---
RN NOTES AWAKE, MORNING CARE RENDERED, DENIES PAIN, NO SOB, PT. NEEDS ATTENDED
[2017-01-27 07:09] LABS: CALCIUM, SERUM 8.6 mg/dL (8.5-10.1); CREATININE 1.1 mg/dL (0.6-1.3); POTASSIUM 4.2 mmol/L (3.5-5.1)
[2017-01-27 08:00] VITALS: BP 137/74
[2017-01-27] MEDS: PANTOPRAZOLE 40 MG TABLET.DR PO SCH (08:04)
[2017-01-27] MEDS: ASCORBIC ACID 500 MG TABLET PO SCH (08:04)
[2017-01-27] MEDS: ZINC SULFATE 220 MG CAPSULE PO SCH (08:04)
[2017-01-27] MEDS: ASPIRIN EC 81 MG TABLET.DR PO SCH (08:04)
[2017-01-27] MEDS: FERROUS SULFATE (325 MG) 325 MG/TAB TABLET PO SCH (08:04)
[2017-01-27] MEDS: LACTOBACILLUS RHAMNOSUS GG 1 EACH CAP.SPRINK PO SCH ×2 (08:04→17:00)
[2017-01-27] MEDS: PRAMIPEXOLE DI-HCL 0.25 MG TABLET PO SCH ×3 (08:05→17:00)
[2017-01-27] MEDS: METOPROLOL TARTRATE 25 MG TABLET PO SCH ×2 (08:05→17:01)
[2017-01-27] MEDS: FLUOCINONIDE 0.05% CREAM 15 GM TUBE TP SCH ×2 (08:05→17:02)
[2017-01-27] MEDS: DAKINS QUARTER STRENGTH (0.125%) 480 ML BOTTLE TOP SCH (08:06)
[2017-01-27] MEDS: GENTAMICIN 0.1% OINT 15 GM TUBE TP SCH (08:07)
[2017-01-27] MEDS: Z GUARD REMEDY 2 OZ OINT TP SCH (08:07)
--- NOTE | 2017-01-27 08:25 | NUR ---
MS/RN Medications Morning medications administered as ordered.
--- NOTE | 2017-01-27 09:09 | NUR ---
MS/RN Patient received Patient received from shift supervisor rn. All needs attended at this time, call light within reach. Time allowed for all questions and concerns to be addressed. Will continue to ensure safety.
--- NOTE | 2017-01-27 09:15 | NUR ---
MS/RN Labs reviewed Morning labs reviewed - all within normal range.
--- NOTE | 2017-01-27 09:58 | NUR ---
MS/RN S/B Dr Petersen Seen by Dr Petersen - discharge planning to SNF today.
--- NOTE | 2017-01-27 15:47 | NUR ---
MS/RN Small sacral wound Noted to have some sacral wound, picture taken and placed in chart. Will notify wound nurse.
[2017-01-27 16:00] VITALS: BP 130/62
--- NOTE | 2017-01-27 18:09 | NUR ---
MS/RN End note No changes at this time. All medications administered as ordered. Patient has been turned and repositioned every 2-3 hours or as condition allows. All needs attended, will endorse to ticket broker.
[2017-01-27 20:24] VITALS: BP 108/47
[2017-01-27] MEDS: LEVOFLOXACIN (250MG) 250 MG TABLET PO SCH (20:38)
[2017-01-27] MEDS: ATORVASTATIN 10 MG TABLET PO SCH (21:04)
--- NOTE | 2017-01-28 02:30 | NUR ---
MS RN NOTE: PATIENT SLEEPING IN BED, NO ACUTE DISTRESS NOTED. BREATHING EVEN AND UNLABORED, NO SOB NOTED. BED LOCKED AND IN LOWEST POSITION, CALL LIGHT IN REACH. WILL CONTINUE TO MONITOR.
[2017-01-28 06:48] LABS: CALCIUM, SERUM 8.8 mg/dL (8.5-10.1); CREATININE 1.1 mg/dL (0.6-1.3)
[2017-01-28] MEDS: PANTOPRAZOLE 40 MG TABLET.DR PO SCH (06:50)
--- NOTE | 2017-01-28 07:30 | NUR ---
MS/RN Patient received Patient received from nightman. Appears comfortable, denies any pain or discomfort. Call light within reach, bed in low setting, side rails X3 in upright position. Will continue to monitor and ensure safety.
[2017-01-28 08:00] VITALS: BP 109/63
--- NOTE | 2017-01-28 08:30 | NUR ---
MS/RN Medications Morning medications administered as ordered.
[2017-01-28] MEDS: LACTOBACILLUS RHAMNOSUS GG 1 EACH CAP.SPRINK PO SCH ×2 (08:31→16:50)
[2017-01-28] MEDS: ASCORBIC ACID 500 MG TABLET PO SCH (08:31)
[2017-01-28] MEDS: ZINC SULFATE 220 MG CAPSULE PO SCH (08:31)
[2017-01-28] MEDS: FERROUS SULFATE (325 MG) 325 MG/TAB TABLET PO SCH (08:31)
[2017-01-28] MEDS: ASPIRIN EC 81 MG TABLET.DR PO SCH (08:31)
[2017-01-28] MEDS: PRAMIPEXOLE DI-HCL 0.25 MG TABLET PO SCH ×3 (08:32→16:50)
[2017-01-28] MEDS: METOPROLOL TARTRATE 25 MG TABLET PO SCH ×2 (08:33→16:50)
[2017-01-28] MEDS: DAKINS QUARTER STRENGTH (0.125%) 480 ML BOTTLE TOP SCH (08:34)
[2017-01-28] MEDS: GENTAMICIN 0.1% OINT 15 GM TUBE TP SCH (08:34)
[2017-01-28] MEDS: Z GUARD REMEDY 2 OZ OINT TP SCH (08:34)
[2017-01-28] MEDS: FLUOCINONIDE 0.05% CREAM 15 GM TUBE TP SCH ×2 (08:34→16:52)
--- NOTE | 2017-01-28 08:34 | NUR ---
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 PT ALSO NOTED TO HAVE RASH TO PERINEUM AND SOME RASH TO BUTTOCKS WITH PEELING SKIN. RECOMMENDATIONS MADE FOR SKIN PROTECTION AND DISCUSSED WITH NURSING STAFF. BHAVNA SCORE IS 15. PT ON OSIRIS COMFORT GEL MATTRESS. IN AGREEMENT WITH PLAN OF CARE. Addendum: 01/28/17 at 0836 by TEENA MOONEY WNDNU Amended: Links added.
--- NOTE | 2017-01-28 09:02 | NUR ---
MS/RN S/B Dr Casillas Seen by Dr Casillas - debridement carried at bedside, per MD dressing not to be removed due to risk of bleeding.
[2017-01-28] MEDS: CLOTRIMAZOLE 1% 15 GM TUBE TP SCH ×2 (12:20→16:52)
--- NOTE | 2017-01-28 12:43 | NUR ---
MS/RN S/B Dr Petersen Seen by Dr Petersen - awaiting son to notify us as to which skilled nursing he would like his mother to be transfered too.
[2017-01-28] MEDS ORDERED: IV NS 0.9% 250 ML IV ONE (14:55)
[2017-01-28] MEDS ORDERED: IV SET PRIMARY PUMP SET 1 EA INFUS.SET MC ONE (14:55)
[2017-01-28] MEDS ORDERED: SECONDARY IV SET 1 EA INFUS.SET MC ONE (14:55)
--- NOTE | 2017-01-28 15:00 | NUR ---
MS/RN Vancomycin Vancomycin hung as ordered, no adverse reaction noted.
[2017-01-28] MEDS: VANCOMYCIN 0.75 GM in IV D5W 250 ML IV SCH (15:01)
[2017-01-28 15:54] VITALS: BP 110/45
[2017-01-28 16:00] VITALS: BP 149/94
--- NOTE | 2017-01-28 17:59 | NUR ---
MS/RN Repositioning Patient has been turned and repositioned every 2-3 hours to prevent further skin breakdown. Skin has been kept clean and dry.
--- NOTE | 2017-01-28 18:07 | NUR ---
MS/RN [facility] Received call from HCP, asking if order had been given by Dr Petersen for discharge to facility. Stated that there was indeed a dc order, but per patient, claims that Dr Petersen had informed her that she would be staying overnight and discharged tomorrow. Asked what needs the patient had to be placed in [facility], informed that she would be needing daily wound care and was currently receiving vancomycin IVAB. security systems manager Jaret made aware of above conversation. Addendum: 01/28/17 at 1827 by NICOLETTE MOONEY [facility]
--- NOTE | 2017-01-28 18:14 | NUR ---
MS/RN HCP / End note Received call from case technician, who had spoken to patient's son. Per son, he has not been contacted by HCP to inform him of possible discharge this evening. If any further calls are received from insurance stating that transport had been arranged to bean picker patient, please ask HCP to first call son to make sure that he is aware of all arrangements. -Nate
[2017-01-28 19:00] VITALS: BP 142/73
--- NOTE | 2017-01-28 20:00 | NUR ---
MS RN NOTE: PATIENT RESTING IN BED, NO ACUTE DISTRESS NOTED, SON AT BEDSIDE. BREATHING EVEN AND UNLABORED, NO SOB NOTED. MIDLINE TO NILSA IN PLACE. BED LOCKED AND IN LOWEST POSITION, CALL LIGHT IN REACH. PER SON, HE SPOKE TO BUSHRA AT [facility] AND THAT THEY ARE TRYING TO COORDINATE FOR PATIENT TO BE DISCHARGE TONIGHT TO [facility]. INFORMED THAT WE WILL WAIT TO HEAR BACK FROM [facility] TO SEE IF BED WAS AVAILABLE AND IF TRANSPORTATION IS SET UP. WILL CONTINUE TO MONITOR AND AWAIT FOR CALL FROM [facility]
--- NOTE | 2017-01-28 21:00 | NUR ---
MS RN NOTE: [facility], PATIENT WILL BE TRANSFERRED TO [facility] BED 1B, DRUG ABUSE PROGRAM COORDINATOR TIME SCHEDULED AT 11PM BY [facility]. INFORMED PATIENT'S SON BETO, WHO WAS AT BEDSIDE. OK WITH TRANSFERRED LATE IN EVENING. CALLED [facility] AND GAVE REPORT TO TIM AT [phone]. WILL CONTINUE TO MONITOR.
[2017-01-28] MEDS: LEVOFLOXACIN (250MG) 250 MG TABLET PO SCH (21:02)
[2017-01-28] MEDS: ATORVASTATIN 10 MG TABLET PO SCH (21:02)
[2017-01-28 22:45] VITALS: BP 133/78
--- NOTE | 2017-01-28 23:00 | NUR ---
MS RN NOTE: EMT ARRIVED TO TOUR BUS DRIVER/GUIDE PATIENT, REPORT GIVEN TO EMT, VITAL SIGNS STABLE. DISCHARGE PAPERWORK SIGNED BY PATIENT AND COPIES FOR FACILITY GIVEN TO EMT. MIDLINE TO NILSA TO STAY IN PLACE, PATIENT TO CONTINUE WITH VANCOMYCIN IV PER MD ORDER. BELONGINGS ALREADY SENT HOME WITH SON QASIM MEJIA. PATIENT OFF FLOOR IN STABLE CONDITION. CALLED HUSSAIN PÉREZ TO INFORM THAT PATIENT WAS LEAVING HOSPITAL AND ON WAY TO [facility]. CALLED [facility] TO INFORM THAT PATIENT ON WAY TO FACILITY, SPOKE TO TIM.
== END 2017-01-28 23:00 | DRG 854 ==
LOC: ER 13:27 → TELE-TD 17:30 → MEDSG2 17:52 → CSC2 01-19 02:29 → MEDSG2 01-19 07:36
PROVIDERS: ADMIT Legal Medicine; ATTEND Legal Medicine
PROC: 05H633Z Insertion of Infusion Device into Left Subclavian Vein, Percutaneous Approach (ICD-10-PCS; 2017-01-21)
PROC: 0KBV0ZZ Excision of Right Foot Muscle, Open Approach (ICD-10-PCS; principal; 2017-01-24)
PROC: 0MBS0ZZ Excision of Right Foot Bursa and Ligament, Open Approach (ICD-10-PCS; 2017-01-26)
PROC: 0JBQ0ZZ Excision of Right Foot Subcutaneous Tissue and Fascia, Open Approach (ICD-10-PCS; 2017-01-28)
DX: A41.9 Sepsis, unspecified organism (principal); L03.115 Cellulitis of right lower limb; L97.419 Non-pressure chronic ulcer of right heel and midfoot with unspecified severity; I96 Gangrene, not elsewhere classified; D68.59 Other primary thrombophilia; E44.1 Mild protein-calorie malnutrition; I10 Essential (primary) hypertension; E78.5 Hyperlipidemia, unspecified; M19.90 Unspecified osteoarthritis, unspecified site; I48.91 Unspecified atrial fibrillation; G25.0 Essential tremor; Z68.23 Body mass index [BMI] 23.0-23.9, adult; L97.519 Non-pressure chronic ulcer of other part of right foot with unspecified severity
CPT/HCPCS: 36415; 36569; 71010-TC; 73630-TC; 73718-TC; 80048-TC; 80076-TC; 80202-TC; 83605-TC; 83735-TC; 84484-TC; 85025-TC; 85652-TC; 85730-TC; 86140-TC; 87040-TC; 87070-TC; 87081-TC; 87186-TC; 93307-TC; 93971-TC; 97001-TC; 97110-TC; 97112-TC; 97530-TC; A4216; A4217; A4606; A6402; A6403; J0692; J0696; J1650; J1956; J3370; J7050; J7060; Z7610

== ENCOUNTER 2019-03-10 17:04 | Emergency (ER) | payer OTHER ==
[~2019-03-10] VITALS: Ht 167.6 cm; Wt 77.1 kg
[~2019-03-10 17:04] MED LIST: ASPI-1152 PO; ATOR10TA PO; FERR325T23 PO; METO25TA20 PO; PRAM1TAB7 PO
--- NOTE | 2019-03-10 17:13 | NUR ---
SEEN AND EXAMINED BY DR. TAPIA.
--- NOTE | 2019-03-10 17:14 | NUR ---
PT [id number] FRM B&C. BLE PAIN, SKIN TEARS AND BRUISING S/P GLF, PT IS AAOX3, NOT IN RESPIRATORY DISTRESS, HOOKED TO MONITOR, V/S STABLE, KEPT RESTED AND COMFORTABLE, WILL CONTINUE TO MONITOR.
--- NOTE | 2019-03-10 17:23 | NUR ---
IV LINE ESTABLISHED, BLOOD DRAWNED AND SENT TO LAB.
[2019-03-10 17:26] LABS: BASOPHILS % (AUTO) 0.3 % (0.0-2.0); EOSINOPHILS % (AUTO) 0.4 % (0.0-6.0); HEMATOCRIT 48 % (33-45); HEMOGLOBIN 16.1 g/dL (11.5-14.8); LYMPHOCYTES # (AUTO) 1.1 /CMM (0.8-4.8); MEAN CORPUSCULAR HGB CONC 33 g/dl (31.0-36.0); MEAN CORPUSCULAR VOLUME 97 fL (82-100); MONOCYTES # (AUTO) 0.7 /CMM (0.1-1.30); MONOCYTES % (AUTO) 4.9 % (2.0-12.0); NEUTROPHILS # (AUTO) 12.3 /CMM (1.8-8.9); NEUTROPHILS % (AUTO) 86.4 % (43.0-81.0); PLATELET COUNT (AUTO) 272 /CMM (150-450); RED BLOOD CELL COUNT(AUTO) 4.97 MIL/uL (4.0-5.2); WHITE BLOOD COUNT (AUTO) 14.3 K/uL (4.3-11.0)
--- NOTE | 2019-03-10 17:30 | NUR ---
PSYCHOMETRIST AT BEDSIDE FOR XRAY.
[2019-03-10 17:33] LABS: CALCIUM, SERUM 8.8 mg/dL (8.5-10.1); CARBON DIOXIDE 23 mmol/L (21-32); CHLORIDE 106 mmol/L (98-107); CREATININE 1.4 mg/dL (0.6-1.3); GLUCOSE 129 mg/dL (74-106); POTASSIUM 4.4 mmol/L (3.5-5.1); SODIUM SERUM 142 mmol/L (136-145); UREA NITROGEN, BLOOD 23 mg/dL (7-18)
--- NOTE | 2019-03-10 18:24 | NUR ---
CALLED [facility] . SPOKE WITH [facility] ATHLETIC COORDINATOR . SHE STATED THAT THEY WOULD GLADLY ACCEPT PATIENT BACK.
--- NOTE | 2019-03-10 18:39 | NUR ---
CALLED [facility] FOR S TRANSPORT BACK TO FACILITY, [address], TRIP #[id number]
--- NOTE | 2019-03-10 19:20 | NUR ---
PT RECEIVED FROM SOBEIDA DUTTON FOR JULIEN. AWAITING FOR TRANSPORT.
--- NOTE | 2019-03-10 20:36 | NUR ---
Patient discharged to home in stable condition. Written and verbal after care instructions given. Patient verbalizes understanding of instruction. IV removed. Catheter intact and site benign. Pressure and 4x4 applied to site. No bleeding noted. Pt p/u by josefa #[phone] with son at bedside. pt transported on [facility]
[2019-03-10 20:38] VITALS: BP 139/83
[2019-04-17] MEDS ORDERED: PANT40TA2 PO (04:02)
[2019-04-17] MEDS ORDERED: LISI-603 PO (04:02)
[2019-04-17] MEDS ORDERED: DOCU100C36 PO (04:02)
[2019-04-17] MEDS ORDERED: CARB-96 PO (04:02)
[2019-04-17] MEDS ORDERED: BUSP5TAB3 PO (07:43)
== END 2019-03-10 20:39 | disposition home or self-care (01) ==
LOC: ER 17:06
DX: S80.212A Abrasion, left knee, initial encounter (principal); S80.211A Abrasion, right knee, initial encounter; I10 Essential (primary) hypertension; Z96.649 Presence of unspecified artificial hip joint; Z98.890 Other specified postprocedural states; Z79.82 Long term (current) use of aspirin; Z88.8 Allergy status to other drugs, medicaments and biological substances; W01.0XXA Fall on same level from slipping, tripping and stumbling without subsequent striking against object, initial encounter; Y93.89 Activity, other specified; Y92.89 Other specified places as the place of occurrence of the external cause; Y99.8 Other external cause status
CPT/HCPCS: 36415; 71045-TC; 80048-TC; 82962-TC; 85025-TC